=== PATIENT | male | born 1985 | race Caucasian/White ===

== ENCOUNTER 2024-05-30 21:09 | Emergency (ER) | payer SELFPAY ==
[~2024-05-30] VITALS: Ht 157.5 cm; Wt 75.0 kg
[2024-05-30 21:30] VITALS: BP 150/98; PULSE 70; RESP 18; TEMP 98.4; O2SAT 100
[2024-05-30] MEDS ORDERED: KETOROLAC 15MG/ML VIAL IM ONE (21:45)
== END 2024-05-31 | disposition left against medical advice (07) ==
LOC: ER 21:09
DX: R07.89 Other chest pain (principal); V49.49XA Driver injured in collision with other motor vehicles in traffic accident, initial encounter; Y93.89 Activity, other specified; Y92.89 Other specified places as the place of occurrence of the external cause; Y99.8 Other external cause status
CPT/HCPCS: 71045; 99283